=== PATIENT | female | born 1950 | race Caucasian/White ===

== ENCOUNTER 2018-07-22 06:22 | Inpatient (IN) | payer OTHER | END 2018-07-24 15:43 | disposition home health service (06) | LOC: DAHIP 06:22 → 4AH 11:55 | PROC: 0RRK00Z Replacement of Left Shoulder Joint with Reverse Ball and Socket Synthetic Substitute, Open Approach (ICD-10-PCS; principal; 2018-07-22 08:45) | DX: M75.100 Unspecified rotator cuff tear or rupture of unspecified shoulder, not specified as traumatic (principal); M12.9 Arthropathy, unspecified; G89.29 Other chronic pain ==

== ENCOUNTER 2018-09-02 10:26 | Emergency (ER) | payer OTHER ==
[~2018-09-02 10:26] MED LIST: ESCI20TA36 PO; FLUT16H NASAL; HYDR30CR77 RC; LOVA40TA2 PO; OXYB5TAB10 PO; PANT40TA25 PO; TRAZ-185 PO; WARF4TAB72 PO
[2018-09-02] MEDS ORDERED: MORPHINE SULFATE 8 MG/ML VIAL ONE (11:07)
== END 2018-09-02 11:35 | disposition home or self-care (01) ==
LOC: EDH 10:26
DX: M25.512 Pain in left shoulder (principal); E78.5 Hyperlipidemia, unspecified; Z98.890 Other specified postprocedural states; Z98.51 Tubal ligation status; Z90.49 Acquired absence of other specified parts of digestive tract; Z87.891 Personal history of nicotine dependence; Z88.1 Allergy status to other antibiotic agents; Z88.5 Allergy status to narcotic agent; Z88.8 Allergy status to other drugs, medicaments and biological substances
CPT/HCPCS: 93005; 96372; 99283; J2270

== ENCOUNTER 2018-09-06 11:15 | Emergency (ER) | payer OTHER ==
[2018-09-06] MEDS ORDERED: LIDOCAINE 5% TOPICAL PATCH TP ONE (12:32)
[2018-09-06] MEDS ORDERED: DEXAMETHASONE SOD PHOSPHATE 10MG/ML 1ML VIAL ONE (12:32)
[2018-09-06] MEDS ORDERED: KETOROLAC TROMETHAMINE 15MG/ML ONE (12:33)
== END 2018-09-06 13:32 | disposition home or self-care (01) ==
LOC: EDH 11:15
DX: G89.29 Other chronic pain (principal); M54.5 Low back pain; E78.5 Hyperlipidemia, unspecified; Z98.51 Tubal ligation status; Z90.49 Acquired absence of other specified parts of digestive tract; Z98.890 Other specified postprocedural states; Z88.1 Allergy status to other antibiotic agents; Z88.5 Allergy status to narcotic agent; Z88.8 Allergy status to other drugs, medicaments and biological substances
CPT/HCPCS: 96372 ×2; 99283; J1100; J1885

== ENCOUNTER → 2018-09-11 | Outpatient (CLI) | payer OTHER | END | disposition home or self-care (01) | LOC: RAH 14:01 | PROVIDERS: ATTEND Orthopaedic Surgery | DX: M25.512 Pain in left shoulder (principal); Z96.612 Presence of left artificial shoulder joint | CPT/HCPCS: 73200 ==

== ENCOUNTER → 2018-09-24 | Outpatient (CLI) | payer OTHER | END | disposition home or self-care (01) | LOC: RAH 09:06 | PROVIDERS: ATTEND Internal Medicine Gastroenterology | DX: K44.9 Diaphragmatic hernia without obstruction or gangrene (principal) | CPT/HCPCS: 74240 ==

== ENCOUNTER → 2019-03-10 | Outpatient (CLI) | payer OTHER | END | disposition home or self-care (01) | LOC: RAH 11:14 | PROVIDERS: ATTEND Internal Medicine | DX: R19.7 Diarrhea, unspecified (principal); R10.9 Unspecified abdominal pain | CPT/HCPCS: 74018 ==

== ENCOUNTER → 2019-03-17 | Outpatient (CLI) | payer OTHER | END | disposition home or self-care (01) | LOC: RAH 08:27 | PROVIDERS: ATTEND Internal Medicine | DX: R10.9 Unspecified abdominal pain (principal); R19.7 Diarrhea, unspecified | CPT/HCPCS: 76700 ==

== ENCOUNTER → 2019-05-13 | Outpatient (CLI) | payer OTHER ==
[~2019-05-13] MED LIST changes: -OXYB5TAB10 PO; +OXYB5TAB15 PO
== END | disposition home or self-care (01) ==
LOC: OIH 12:55
PROVIDERS: ATTEND Internal Medicine
DX: R07.9 Chest pain, unspecified (principal); M41.80 Other forms of scoliosis, site unspecified; M47.815 Spondylosis without myelopathy or radiculopathy, thoracolumbar region
CPT/HCPCS: 71046

== ENCOUNTER → 2021-02-12 | Outpatient (CLI) | payer OTHER ==
[~2021-02-12] MED LIST changes: -ESCI20TA36 PO; +ESCI20TA38 PO; -PANT40TA25 PO; +PANT40TA54 PO
== END | disposition home or self-care (01) ==
LOC: RAH 15:17
PROVIDERS: ATTEND Internal Medicine
DX: K59.09 Other constipation (principal)
CPT/HCPCS: 74021

== ENCOUNTER → 2023-01-31 | Outpatient (CLI) | payer OTHER | END | disposition home or self-care (01) | LOC: RAH 09:38 | PROVIDERS: ATTEND Internal Medicine | DX: N32.89 Other specified disorders of bladder (principal); N39.0 Urinary tract infection, site not specified | CPT/HCPCS: 76770 ==

== ENCOUNTER → 2023-02-18 | Outpatient (CLI) | payer OTHER | END | disposition home or self-care (01) | LOC: RAH 11:24 | PROVIDERS: ATTEND Internal Medicine | DX: R10.9 Unspecified abdominal pain (principal); M79.89 Other specified soft tissue disorders | CPT/HCPCS: 74176 ==

== ENCOUNTER → 2023-09-09 | Outpatient (CLI) | payer OTHER ==
[~2023-09-09] MED LIST changes: -OXYB5TAB15 PO; +OXYB5TAB20 PO
== END | disposition home or self-care (01) ==
LOC: RAH 09:13
PROVIDERS: ATTEND Internal Medicine
DX: R19.00 Intra-abdominal and pelvic swelling, mass and lump, unspecified site (principal); K46.9 Unspecified abdominal hernia without obstruction or gangrene
CPT/HCPCS: 76700

== ENCOUNTER → 2024-03-23 | Outpatient (CLI) | payer OTHER | END | disposition home or self-care (01) | LOC: RAH 15:03 | PROVIDERS: ATTEND Internal Medicine | DX: I70.203 Unspecified atherosclerosis of native arteries of extremities, bilateral legs (principal); I82.593 Chronic embolism and thrombosis of other specified deep vein of lower extremity, bilateral | CPT/HCPCS: 93925 ==

== ENCOUNTER 2024-04-12 08:51 | Day surgery (SDC) | payer OTHER ==
[2024-04-07 12:19] LABS: BASOPHILS # (AUTO) 0.06 K/uL (0.00-0.20); BASOPHILS % (AUTO) 0.7 % (0.0-5.0); EOSINOPHILS # (AUTO) 0.35 K/uL (0.00-0.70); HEMATOCRIT 40.8 % (36-48); IMMATURE GRANULOCYTE ABSOLUTE 0.06 K/uL (0-1); LYMPHOCYTES # (AUTO) 1.2 K/uL (1.0-4.8); MEAN CORPUSCULAR HEMOGLOBIN 29.6 pg (27.0-33.0); MEAN CORPUSCULAR HGB CONC 32.4 g/dL (32.0-36.0); MEAN CORPUSCULAR VOLUME 91.5 fL (79-99); MONOCYTES # (AUTO) 0.8 K/uL (0.1-1.0); MONOCYTES % (AUTO) 9.4 % (3.0-13.0); NEUTROPHILS # (AUTO) 6.3 K/uL (1.8-7.7); NEUTROPHILS % (AUTO) 71.2 % (40.0-77.0); PLATELET COUNT (AUTO) 289 K/uL (130-400); RED BLOOD CELL COUNT(AUTO) 4.46 MIL/uL (4.00-5.50); RED CELL DISTRIBUTION WIDTH 13.5 % (11.0-15.5); WHITE BLOOD COUNT (AUTO) 8.8 K/uL (4.8-10.8)
[2024-04-07 12:28] LABS: APPEARANCE,URINE CLEAR (CLEAR); BILIRUBIN,URINE NEGATIVE (NEGATIVE); COLOR,URINE LIGHT-YELLOW (YELLOW); GLUCOSE, URINE (UA) NEGATIVE (NEGATIVE); KETONES,URINE NEGATIVE (NEGATIVE); LEUKOCYTE ESTERASE ,URINE NEGATIVE Leu/uL (NEGATIVE); NITRATE,URINE NEGATIVE (NEGATIVE); OCCULT BLOOD,URINE NEGATIVE (NEGATIVE); PROTEIN,URINE NEGATIVE (NEGATIVE); UROBILINOGEN,URINE 0.2 mg/dL (0.2-1.0)
[2024-04-07 12:30] LABS: INR 1.34 (0.85-1.15); PROTHROMBIN TIME 14.2 SEC (9.6-11.6)
[2024-04-07 12:31] LABS: PARTIAL THROMBOPLASTIN TIME 27.1 SEC (26.3-35.5)
[2024-04-07 12:41] LABS: ALBUMIN 3.5 g/dL (3.5-5.0); CARBON DIOXIDE 27 mmol/L (21-32); CHLORIDE 102 mmol/L (101-111); GLOMERULAR FILTR. RATE CALC 59 mL/min (>90); GLUCOSE,RANDOM 154 mg/dL (70-105); POTASSIUM 4.6 mmol/L (3.5-5.1); SODIUM SERUM 138 mmol/L (136-145); UREA NITROGEN, BLOOD 12 mg/dL (7-18)
[2024-04-07 12:52] LABS: ADD UA MICROSCOPIC NO
[2024-04-07 12:58] VITALS: BP 115/68; PULSE 88; RESP 16; TEMP 97.1
[~2024-04-12] VITALS: Ht 157.5 cm; Wt 54.2 kg
[2024-04-12] VITALS (14 sets, daily range): BP systolic 96–134; BP diastolic 49–74; PULSE 60–94; RESP 15–20; TEMP 97.5–97.9
[~2024-04-12 08:51] MED LIST changes: -ESCI20TA38 PO; -HYDR30CR77 RC; +OMEP40CA21 PO; -OXYB5TAB20 PO; -PANT40TA54 PO; +RALO60TA13 PO; +SERT-440 PO; +SOLI10TA PO; +TIZA2CAP9 PO; -TRAZ-185 PO; +TRAZ150T79 PO; +WARF3TAB59 PO; +ceFAZolin SODIUM 2 GM VIAL IVPB SCH
[2024-04-12 09:48] LABS: INR 0.95 (0.85-1.15); PROTHROMBIN TIME 10.3 SEC (9.6-11.6)
[2024-04-12] MEDS: ceFAZolin SODIUM 2 GM VIAL ONE (09:48)
[2024-04-12] MEDS: LACTATED RINGERS 1000ML 1,000 ML IV ONE (09:48)
[2024-04-12 09:49] LABS: PARTIAL THROMBOPLASTIN TIME 22.4 SEC (26.3-35.5)
[2024-04-12] MEDS ORDERED: LIDOCAINE PF 100MG/5ML (2%) SYRINGE 5ML ONE (10:24)
[2024-04-12] MEDS ORDERED: proPOFol 10 MG/ML 20ML VIAL IV ONE (10:24)
[2024-04-12] MEDS ORDERED: rocuRONium bROMide 10MG/1ML 5ML VL ONE ×2 (10:24→12:29)
[2024-04-12] MEDS ORDERED: MIDAZOLAM HCL 1 MG/ML 2ML VIAL ONE (10:24)
[2024-04-12] MEDS ORDERED: FENTanyl CITRate PF 50 MCG/1 ML 2ML VIAL ONE (10:25)
[2024-04-12] MEDS ORDERED: ROPivacaine 0.5% 5MG/ML 30ML ONE (11:14)
[2024-04-12] MEDS ORDERED: ondanSETRON 4MG INJ ONE (11:38)
[2024-04-12] MEDS ORDERED: dexaMETHasone SOD PHOSPHATE 4 MG/ML 1ML VIAL ONE ×2 (11:38)
[2024-04-12] MEDS ORDERED: TRANEXAMIC ACID 1000MG/10ML ONE ×2 (11:46→11:47)
[2024-04-12] MEDS ORDERED: ePHEDrine SULFate 50 MG/ML AMPULE ONE (11:46)
[2024-04-12] MEDS ORDERED: HYDR-4060 PO (13:46)
== END 2024-04-12 15:40 | disposition home or self-care (01) ==
LOC: DAH 08:51
PROVIDERS: ATTEND Student in an Organized Health Care Education/Training Program
DX: M12.811 Other specific arthropathies, not elsewhere classified, right shoulder (principal); M75.101 Unspecified rotator cuff tear or rupture of right shoulder, not specified as traumatic; G89.29 Other chronic pain; F32.A Depression, unspecified; Z96.612 Presence of left artificial shoulder joint; Z79.01 Long term (current) use of anticoagulants; Z88.1 Allergy status to other antibiotic agents; Z88.5 Allergy status to narcotic agent; Z88.8 Allergy status to other drugs, medicaments and biological substances; Z79.899 Other long term (current) drug therapy
CPT/HCPCS: 82040; 80048; 85025; 85610 ×2; 85730 ×2; 87086 ×2; 87186; 84134; 86140; 81003; 36415 ×2; 93005; 87641; 23472; 64415; 73030; J1100 ×2; C1776 ×4; C1713 ×4; A4663; J7030; J7120; J3010; J3490 ×5; J2003; J2250; J2704; J2405; J2795; J0690; A4649; A6254; A5120; A4215 ×2; A4222; A4221; A4216; A4223 ×2; A4600

== ENCOUNTER → 2024-10-01 | Outpatient (CLI) | payer OTHER ==
[~2024-10-01] MED LIST changes: +HYDR-4060 PO; -ceFAZolin SODIUM 2 GM VIAL IVPB SCH
--- NOTE | 2024-10-01 16:07 | HMCIMG ---
CT UPPER EXT W/O CONTRAST HISTORY: Right shoulder displaced fracture of acromion process COMPARISON: None TECHNIQUE: Multiple sequential axial images of the right shoulder were obtained including post processing sagittal and coronal reconstruction images. Patient was not given contrast through intravenous route. FINDINGS: The study is limited due to right shoulder replacement changes. There are artifacts limiting evaluation. Acromioclavicular joint space narrowing is seen. There is almost density at the anterior aspect of the acromioclavicular joint measuring 11 mm may be related to calcific tendinosis versus postop changes versus post body. No definite acute displaced fracture or dislocation is seen. IMPRESSION: 1. Findings as described above. CT was performed with one or more following dose reduction techniques: automated exposure control, adjustment of the mA and kv according to patient's size, or use of a iterative reconstruction technique.
== END | disposition home or self-care (01) ==
LOC: RAH 12:42
PROVIDERS: ATTEND Student in an Organized Health Care Education/Training Program
DX: S42.121A Displaced fracture of acromial process, right shoulder, initial encounter for closed fracture (principal); X58.XXXA Exposure to other specified factors, initial encounter; Y93.89 Activity, other specified; Y92.89 Other specified places as the place of occurrence of the external cause; Y99.8 Other external cause status
CPT/HCPCS: 73200

== ENCOUNTER → 2024-10-18 | Outpatient (CLI) | payer OTHER ==
--- NOTE | 2024-10-18 12:23 | HMCIMG ---
CHEST 2VWS HISTORY: Preop COMPARISON: 03/30/2024 FINDINGS: Frontal and lateral projections of the chest were obtained. There is no acute pulmonary infiltrates or failure. There are bilateral shoulder arthroplasty changes. The heart is not enlarged. No evidence of aortic calcification is seen. Degenerative changes are seen of the thoracolumbar spine. IMPRESSION: 1. No acute pulmonary infiltrates.
== END | disposition home or self-care (01) ==
LOC: RAH 11:31
PROVIDERS: ATTEND Physician Assistant
DX: Z01.818 Encounter for other preprocedural examination (principal); M15.9 Polyosteoarthritis, unspecified; I82.509 Chronic embolism and thrombosis of unspecified deep veins of unspecified lower extremity; N18.31 Chronic kidney disease, stage 3a; E78.2 Mixed hyperlipidemia; D68.59 Other primary thrombophilia; M47.815 Spondylosis without myelopathy or radiculopathy, thoracolumbar region; Z96.611 Presence of right artificial shoulder joint; Z96.612 Presence of left artificial shoulder joint
CPT/HCPCS: 71046

== ENCOUNTER 2024-10-27 07:57 | Day surgery (SDC) | payer OTHER ==
[2024-10-22 13:00] LABS: INR 1.39 (0.85-1.15); PROTHROMBIN TIME 14.3 SEC (9.6-11.6)
[2024-10-22 13:01] LABS: PARTIAL THROMBOPLASTIN TIME 25.8 SEC (26.3-35.5)
--- NOTE | 2024-10-22 13:09 | EKG ---
[facility] Test Date: 2024-10-22 Test Time: 12:31:44 Pat Name: RENATE GOOD Department: [facility] Room: Gender: F Framing And Hanging: [id number] : 1950 Requested By: ANNA MARIE NATARAJAN Order Number: [id number] Reading MD: Dixon Reynolds Measurements Intervals [place] Rate: 63 P: 41 NC: 185 QRS: -43 QRSD: 94 T: 5 QT: 418 QTc: 429 Interpretive Statements Sinus rhythm Inferior infarct, old Consider anteroseptal infarct Compared to ECG 04/07/2024 12:06:47 Left-axis deviation no longer present Myocardial infarct finding still present Electronically Signed On 10-23-2024 11:43:47 CDT by Dixon Reynolds Please click the below link to view image of tracing.
[2024-10-22 13:32] VITALS: BP 116/63; PULSE 73; RESP 18; TEMP 96.8
--- NOTE | 2024-10-26 11:11 | NUR ---
report dr underwood reviewed ekg. ok to proceed
[2024-10-27] VITALS (13 sets, daily range): BP systolic 122–161; BP diastolic 66–90; PULSE 69–76; RESP 15–18; TEMP 96.9–98.1
[~2024-10-27] VITALS: Ht 154.9 cm; Wt 53.8 kg
[~2024-10-27 07:57] MED LIST changes: -FLUT16H NASAL; -HYDR-4060 PO; -WARF4TAB72 PO
[2024-10-27] MEDS ORDERED: ceFAZolin SODIUM 2 GM VIAL ONE (08:30)
[2024-10-27] MEDS ORDERED: LACTATED RINGERS 1000ML 1,000 ML IV ONE (08:30)
[2024-10-27] MEDS ORDERED: acetaMINOPHEN 100 ML ONE (14:18)
[2024-10-27] MEDS ORDERED: FAMOTIDINE 20MG VIAL IV ONE (14:18)
[2024-10-27] MEDS ORDERED: LIDOCAINE PF 100MG/5ML (2%) SYRINGE 5ML ONE (14:20)
[2024-10-27] MEDS ORDERED: FENTanyl CITRate PF 50 MCG/1 ML 2ML VIAL ONE (14:20)
[2024-10-27] MEDS ORDERED: rocuRONium bROMide 10MG/1ML 5ML VL ONE (14:20)
[2024-10-27] MEDS ORDERED: proPOFol 10 MG/ML 20ML VIAL IV ONE (14:20)
[2024-10-27] MEDS ORDERED: ROPivacaine 0.5% 5MG/ML 30ML ONE (14:22)
[2024-10-27] MEDS ORDERED: ketaMINE 50MG/ML SYRINGE 50 MG/ML DISP.SYRIN ONE (14:22)
[2024-10-27] MEDS ORDERED: ALBUMIN (HUMAN) 5% 250 ML IV ONE (14:25)
[2024-10-27] MEDS ORDERED: GLYCOPYRROLATE 0.2 MG/ML 5 ML VIAL ONE ×2 (15:10→16:36)
[2024-10-27] MEDS ORDERED: ondanSETRON 4MG INJ ONE (15:23)
[2024-10-27] MEDS ORDERED: dexaMETHasone SOD PHOSPHATE 10MG/ML 1ML VIAL ONE (15:23)
[2024-10-27] MEDS ORDERED: NEOSTIGMINE METHYLSULFATE 1MG/ML IV ONE (16:34)
[2024-10-27] MEDS ORDERED: HYDR-4060 PO (17:07)
--- NOTE | 2024-10-27 17:11 | HMCIMG ---
SHOULDER COMP 2+VWS RT HISTORY: ORIF COMPARISON: None TECHNIQUE: Fluoroscopic images were obtained. FINDINGS: Please see procedure report by the referring physician. IMPRESSION: 1. Findings as described above.
--- NOTE | 2024-10-27 17:53 | NUR ---
DRESSING: DRESSING TO RIGHT SHOULDER DRY/INTACT. RIGHT ARM IN PLACE TO ARM SLING.
--- NOTE | 2024-10-27 18:08 | NUR ---
DRESSING: DRESSING TO RIGHT SHOULDER DRY/INTACT WITH ARM IN PLACE TO ARM SLING
--- NOTE | 2024-10-27 18:31 | OP ---
Operative Note: DATE OF PROCEDURE: 10/27/24 SURGEON: ANNA MARIE NATARAJAN MD SPARK PLUG ASSEMBLER: Dixon Candelario ANESTHESIA: General and interscalene block ANESTHESIOLOGIST/SECURITY SYSTEMS ENGINEER: INEZ Jarrett PREOPERATIVE DIAGNOSIS: Right acromion fracture POSTOPERATIVE DIAGNOSIS: Right acromion fracture PROCEDURE: Open reduction and internal fixation of right acromion fracture ESTIMATED BLOOD LOSS: 100 cc COMPLICATIONS: None DRAINS: None IMPLANTS: 4.0 partially threaded cannulated screws x 3 INDICATIONS: 73-year-old female with right shoulder pain and dysfunction seen after sustaining a right acromion fracture 4 months ago. Initially, we tried brief immobilization and limited active range of motion with conservative treatment of her fracture. She continued with pain and a CT scan was obtained that showed a lack of healing at the fracture site. After discussion the risk, benefits, and alternatives, the patient voluntarily agreed to undergo the aforementioned procedure. DESCRIPTION OF PROCEDURE: Patient was properly identified in the preoperative holding area. Surgical site marking was verified and surgery consent reviewed. The patient was then taken to the operating room and placed in supine position on the OR table. After induction of general anesthesia, preoperative antibiotics were given, all bony prominences were well-padded as the patient was transitioned into beachchair positioning. The right upper extremity was then prepped and draped in usual sterile fashion. Surgical time out was done verifying correct surgery, side, site, and location to be performed. We then marked out the posterolateral anatomy on the skin and made a proximally 15 cm long oblique incision overlying the fracture site. Hemostasis was then performed using Bovie electrocautery. Using the Metzenbaum scissors we dissected down to try to identify the fascial plane. There was a very thin a mount of tissue for the posterior deltoid. We began to elevate this anteriorly off of the spine and acromion. As we did so, we were able to identify the fracture site. This was distracted using a [place] elevator. Interposed fibrous tissue was debrided using curette and rongeur. We debrided both sides of the fracture site in this nature. We then attempted to obtain a reduction using a [id number] clamp to help elevate the acromial fragment. Using 0.062 K-wire, we placed two wires across the fracture site to try to hold the reduction. This was visualized under fluoroscopy and found to looked more appropriate. When placing the K-wires we noted the bone quality to be reasonable. We then elected to place partially-threaded 4.0 mm cannulated screws across our fracture site. We placed the guidewires and checked positioning under fluoroscopy. Only the lateral cortex was opened with the cannulated drill. We placed three of the 4.0 mm cannulated screws in this fashion. We checked our placement under fluoroscopy. We then removed the provisional K-wire fixation and guidewires for the cannulated screws. We then obtained our final fluoroscopic views. We thoroughly irrigated out the wound with normal saline. We then began repairing the fascial layer bringing the thin deltoid tissue back around posteriorly, using a #1 Vicryl. Subcutaneous tissue was approximated using 2-0 Vicryl. The skin was closed using a running subcuticular 3-0 Monocryl with Dermabond applied. An sterile soft surgical dressing was applied once the Dermabond dried. The patient was then placed into a shoulder immobilizer, awakened from anesthesia, and taken recovery room in stable condition. ANNA MARIE NATARAJAN MD Oct 27, 2024 18:31
== END 2024-10-27 18:08 | disposition home or self-care (01) ==
LOC: DAH 07:57
PROVIDERS: ATTEND Student in an Organized Health Care Education/Training Program
DX: S42.121A Displaced fracture of acromial process, right shoulder, initial encounter for closed fracture (principal); M19.90 Unspecified osteoarthritis, unspecified site; E78.5 Hyperlipidemia, unspecified; F32.A Depression, unspecified; Z86.2 Personal history of diseases of the blood and blood-forming organs and certain disorders involving the immune mechanism; Z82.49 Family history of ischemic heart disease and other diseases of the circulatory system; Z88.5 Allergy status to narcotic agent; Z88.1 Allergy status to other antibiotic agents; Z79.899 Other long term (current) drug therapy; Z98.890 Other specified postprocedural states; X58.XXXA Exposure to other specified factors, initial encounter; Y93.89 Activity, other specified; Y92.89 Other specified places as the place of occurrence of the external cause; Y99.8 Other external cause status
CPT/HCPCS: 93005; 85610; 85730; 84134; 86140; 36415; 87641; 64415; 23585; 73030; A4223 ×2; A4600; A4663; J7030; C1713 ×2; P9045; J7120; J3490 ×5; J3010; J1100; J2003; J2704; J2405; J2710; J2795; J0690; A6206; A4649 ×3; A4215; A4213; A4222; A4221; A4216; A5120

== ENCOUNTER → 2025-04-27 | Outpatient (CLI) | payer OTHER ==
[~2025-04-27] MED LIST changes: +HYDR-4060 PO
--- NOTE | 2025-04-27 13:59 | EKG ---
[facility] Test Date: 2025-04-27 Test Time: 13:15:45 Pat Name: RENATE GOOD Department: [facility] Room: Gender: F Bevel Operator: [id number] : 1950 Requested By: BRADLEY YEPEZ Order Number: [id number] Reading MD: Saqib Duque Measurements Intervals [place] Rate: 59 P: 50 NV: 189 QRS: -9 QRSD: 89 T: 7 QT: 423 QTc: 420 Interpretive Statements Sinus rhythm Anteroseptal infarct, age indeterminate Compared to ECG 10/22/2024 12:31:44 No significant changes Electronically Signed On 04-28-2025 17:46:48 CDT by Saqib Duque Please click the below link to view image of tracing.
--- NOTE | 2025-04-27 21:33 | HMCIMG ---
EXAM: CHEST RADIOGRAPH, 1 VIEW Technique: Single frontal view of the chest. Clinical Information: Pre-operative evaluation; history of bilateral shoulder arthroplasty. Findings: Heart and mediastinum: Cardiomediastinal silhouette within normal size and contour. Lungs and large airways: Clear lungs without focal airspace consolidation. No pulmonary edema. Pleura: No pleural effusion or pneumothorax detected. Bones/joints: Bilateral shoulder arthroplasty hardware noted and appears intact where visualized. No acute osseous abnormality. Upper abdomen: Visualized portions are unremarkable. Impression: 1. No acute cardiopulmonary process. 2. Bilateral shoulder arthroplasties, intact in the visualized portions. /[place]
--- NOTE | 2025-04-27 21:34 | HMCIMG ---
EXAM: LUMBAR SPINE, FLEXION/EXTENSION, 4 VIEWS Technique: Anteroposterior, lateral neutral, lateral flexion, and lateral extension radiographs of the lumbar spine. 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 Findings: Alignment: Mild lumbar levoscoliosis. Grade 1 anterolisthesis of L3 on L4, L4 on L5, and L5 on S1, more conspicuous on flexion views. Vertebral body height: Preserved without compression deformity. Intervertebral discs: Multilevel disc height loss, most pronounced at L3???4, L4???5, and L5???S1. Endplates and posterior elements: Multilevel endplate osteophytosis consistent with degenerative spondylosis; facet arthropathy suggested at the lower lumbar levels. Soft tissues: No prevertebral or paraspinal soft-tissue abnormality identified. Impression: * Multilevel degenerative spondylosis with disc height loss greatest at L3???4, L4???5, and L5???S1. * Grade 1 anterolisthesis of L3 on L4, L4 on L5, and L5 on S1, best appreciated on flexion views. * Mild lumbar levoscoliosis. * Given the history of neurogenic claudication, magnetic resonance imaging of the lumbar spine is recommended to evaluate for central canal and foraminal stenosis and to guide management. /[place]
== END | disposition home or self-care (01) ==
LOC: RAH 12:42
PROVIDERS: ATTEND Internal Medicine
DX: Z01.818 Encounter for other preprocedural examination (principal); J44.9 Chronic obstructive pulmonary disease, unspecified; M47.817 Spondylosis without myelopathy or radiculopathy, lumbosacral region; M51.379 Other intervertebral disc degeneration, lumbosacral region without mention of lumbar back pain or lower extremity pain; M41.87 Other forms of scoliosis, lumbosacral region; M48.062 Spinal stenosis, lumbar region with neurogenic claudication; M43.17 Spondylolisthesis, lumbosacral region; Z96.612 Presence of left artificial shoulder joint; Z96.611 Presence of right artificial shoulder joint
CPT/HCPCS: 71045; 72114; 93005

== ENCOUNTER → 2025-05-02 | Outpatient (CLI) | payer OTHER ==
--- NOTE | 2025-05-02 13:52 | HMCIMG ---
EXAM: CR left ankle, 3 View. CLINICAL HISTORY: PAIN IN LEFT ANKLE AND JOINTS OF LEFT FOOT COMPARISON: None provided. FINDINGS: BONES: No acute fracture or aggressive appearing osseous lesion. JOINTS: The joint spaces appear within normal limits. No dislocation. No radiographic evidence of a joint effusion. SOFT TISSUES: The soft tissues are unremarkable. IMPRESSION: 1. No acute findings. /[place]
== END | disposition home or self-care (01) ==
LOC: RAH 11:58
PROVIDERS: ATTEND Internal Medicine
DX: M25.572 Pain in left ankle and joints of left foot (principal)
CPT/HCPCS: 73610